=== PATIENT | male | born 1990 | race Caucasian/White ===

== ENCOUNTER 2021-07-13 11:29 | Emergency (ER) | payer SELFPAY ==
--- NOTE | ~2021-07-13 | XR_ITS ---
EXAMINATION: XR WRIST, LEFT CLINICAL INFORMATION: Work injury COMPARISON: None TECHNIQUE: PA, lateral, and oblique views of the left wrist. FINDINGS: Visualized portions of the distal radius and ulna demonstrate no fracture. Carpal rows are well-maintained. No carpal bone fracture. Visualized metacarpals and phalanges demonstrate no fracture. No focal soft tissue swelling of the wrist. No radiopaque foreign body. XR/XR wrist LT 2V IMPRESSION: Unremarkable radiographs of the left wrist.
[2021-07-13 11:35] VITALS: BP 182/94; PULSE 82; RESP 18; TEMP 36.8; O2SAT 98; BMI 30.7
--- NOTE | 2021-07-13 12:38 | ED_ITS ---
HPI - Extremity Injury (Upper) General Chief Complaint: Extremity Injury, Upper Stated Complaint: l wrist pain work inj Time Seen by Provider: 07/13/21 11:43 Source: patient Mode of arrival: ambulatory Limitations: no limitations History of Present Illness MD complaint: injury to: left, forearm and wrist Onset (ago): day(s) (For the past few days worse today) Other Extremity Injury: left: wrist and arm Other injuries: none Place: work Severity: moderate Relieving factors: none Exacerbating factors: movement of extremity and other (Or trying to lift) Context: other (Lift injury) Associated symptoms: denies other symptoms Related Data Previous Rx's Medication Instructions Recorded naproxen 500 mg tablet 500 mg PO BID PRN #10 tab 07/13/21 oxycodone-acetaminophen 5 mg-325 1 tab PO Q6H PRN #10 tab 07/13/21 mg tablet (Percocet) prednisone 20 mg tablet 40 mg PO DAILY 5 Days #10 tab 07/13/21 Allergies Allergy/AdvReac Type Severity Reaction Status Date / Time No Known Allergies Allergy Unverified 05/16/20 17:36 [No Known Allergies*] Review of Systems Review of Systems: Constitutional : No Weight loss, No Fever, No Chills, No Night Sweats, No Fatigue, No Malaise ENT/Mouth : No Hearing loss, No Ear Pain, No Nasal Congestion, No Sinus Pain, No Hoarseness, No sore throat, No Rhinorrhea, No Swallowing Difficulty Eyes: No Eye Pain, No Swelling, No Redness, No Foreign Body, No Discharge, No Vision Changes Cardiovascular : No Chest Pain, No SOB, No Dyspnea on Exertion, No Orthopnea, No Edema, No Palpitations Respiratory : No Cough, No Sputum, No Wheezing, No Smoke Exposure, No Dyspnea Gastrointestinal : No Nausea, No Vomiting, No Diarrhea, No Constipation, No abdominal Pain, No Hematochezia, No Melena Genitourinary : no irregular bleeding, No Dysuria, No Urinary Frequency, No Hematuria, No Urinary Incontinence, No Urgency, No Flank Pain, No Urinary Flow Changes, No Hesitancy Musculoskeletal : + right wrist/forearm joint pain, No Myalgias, No Joint Swelling Skin : No Skin Lesions, No rash Neuro : No Weakness, No Numbness, No Paresthesias, No Loss of Consciousness, No Dizziness, No Headache Psych : No Anxiety/Panic, No Depression, No SI/HI/AH/VH, No Social Issues, Heme/Lymph: No Bruising, No Bleeding,No Lymphadenopathy Endocrine : No Polyuria, No Polydipsia, No Temperature Intolerance Yes all other systems are reviewed and are negative [facility] Past Medical History Attestation statement: The following information was validated with the patient. Social History Social History Advance Directives: No Advance Directives Information Provided: No Physical Exam Vital Signs: Vital Signs: Last Vital Signs Temp 98.2 F 07/13/21 11:35 Pulse 82 07/13/21 11:35 Resp 18 07/13/21 11:35 BP 182/94 H 07/13/21 11:35 Pulse Ox 98 07/13/21 11:35 Body Mass Index 30.7 vital signs have been reviewed as normal and appeared to be correct. Blood pressure 182/94 Heart rate normal. Respiration rate normal. Temperature normal. Oxygen saturation normal. Appearance: Alert. Oriented X3. No acute distress. Head: Normal external exam. Normocephalic. Atraumatic. Eyes: PERRLA. EOMI. Conjunctiva and sclera normal. Eyelids normal. ENT: Pharynx normal. Uvula midline. Moist mucous membranes. Neck: Normal inspection. Neck supple. FROM. CVS: Normal heart rate and rhythm. Respiratory: No respiratory distress. Painless inspiration. Skin: Skin warm and dry. Normal skin color. Normal skin turgor. No rashes/lesions/lacerations noted. Extremities: TTP to the left volar aspect of the wrist right in the middle patient has tenderness all patient going up the right forearm and pain with extension of the wrist although no pain with flexion of the wrist. No obvious tendon or ligament injury. Negative for carpal tunnel. Although he has full range of motion of the right hand/wrist/elbow joint. no upper extremity edema is noted. Otherwise all other Extremities exhibit normal range of motion and nontender. Neuro: Oriented X 3. No motor deficit. No sensory deficit. Reflexes normal. Normal steady gait. No focal neuro deficits noted. Vascular: + radial pulses/+ 2 distal pedal pulses/+2 dorsalis pedis b/l. Normal cap refill. No cyanosis noted to upper extremity nails and lower extremity toes nails. Course Course Course Narrative: -year-old male presenting to the ED with complaints of left wrist pain especially when he tries to lift anything he feels like it goes week and he is going to drop everything this has been going on for the past few days he is unsure if this is a work related injury or not. X-ray negative for any acute processes. Therefore will place in a wrist splint and treat symptomatic and referred to orthopedic instructions to return if any new or worsening symptoms. Patient understands agrees with this plan. MDM - Extremity Injury (Upper) Medical Records Attestation: I reviewed the patient's medical records. Imaging Data Left wrist x-ray: Attestation: I personally reviewed and interpreted this imaging study as follows: Radiologist's impression: FINDINGS: Visualized portions of the distal radius and ulna demonstrate no fracture. Carpal rows are well-maintained. No carpal bone fracture. Visualized metacarpals and phalanges demonstrate no fracture. No focal soft tissue swelling of the wrist. No radiopaque foreign body.? XR/XR wrist LT 2V IMPRESSION: Unremarkable radiographs of the left wrist. Procedures Orthopedic Splinting/Casting Injury #1: Side: left Upper Extremity Injury Location: wrist Upper Extremity Immobilizer: wrist splint Discharge Plan Discharge Clinical Impression: Sprain and strain of wrist Patient Disposition: Home, Self-Care Instructions: Wrist Injury (ED), Wrist Sprain (ED) Prescriptions: New prednisone 20 mg tablet 40 mg PO DAILY 5 Days Qty: 10 RF: 0 oxycodone-acetaminophen [Percocet] 5-325 mg tablet 1 tab PO Q6H PRN (Reason: pain) Qty: 10 RF: 0 naproxen 500 mg tablet 500 mg PO BID PRN (Reason: pain) Qty: 10 RF: 0 Referrals: Harshad Young MD [Physician] - 2 weeks (If symptoms persist make an appointment) Arjun Torres MD [Primary Care Provider] - 2 days [facility] [Provider Group] - 2 days Stand Alone Forms: Work/School Release Print Language: Barbadian
== END 2021-07-13 12:59 | disposition home or self-care (01) ==
PROVIDERS: Emergency Provider Emergency Medicine; PCP Family Medicine
DX: S63.502A Unspecified sprain of left wrist, initial encounter (principal); S66.912A Strain of unspecified muscle, fascia and tendon at wrist and hand level, left hand, initial encounter; X50.9XXA Other and unspecified overexertion or strenuous movements or postures, initial encounter; Y93.9 Activity, unspecified; Y92.9 Unspecified place or not applicable; Y99.0 Civilian activity done for income or pay
CPT/HCPCS: 73100; 99283; 99284

== ENCOUNTER → 2022-10-29 11:18 | Outpatient (BNVA) | payer OTHER, SELFPAY | PROVIDERS: PCP Family Medicine; Visit Provider Physician Assistant | DX: S39.012A Strain of muscle, fascia and tendon of lower back, initial encounter (principal); X50.1XXA Overexertion from prolonged static or awkward postures, initial encounter | CPT/HCPCS: 99202 ==

== ENCOUNTER → 2022-11-03 11:42 | Outpatient (BNVA) | payer OTHER, SELFPAY | PROVIDERS: PCP Family Medicine; Visit Provider Internal Medicine | DX: S39.012A Strain of muscle, fascia and tendon of lower back, initial encounter (principal); X58.XXXA Exposure to other specified factors, initial encounter | CPT/HCPCS: 99213 ==

== ENCOUNTER → 2022-11-12 10:17 | Outpatient (BNVA) | payer OTHER, SELFPAY | PROVIDERS: PCP Family Medicine; Visit Provider Internal Medicine | DX: S39.012A Strain of muscle, fascia and tendon of lower back, initial encounter (principal); X58.XXXA Exposure to other specified factors, initial encounter | CPT/HCPCS: 99213 ==

== ENCOUNTER → 2022-11-19 13:25 | Outpatient (BNVA) | payer OTHER, SELFPAY | PROVIDERS: PCP Family Medicine; Visit Provider Internal Medicine | DX: M54.50 Low back pain, unspecified (principal) | CPT/HCPCS: 99213 ==

== ENCOUNTER 2022-11-19 15:00 | Outpatient (RCR) | payer OTHER, BC, SELFPAY ==
--- NOTE | 2022-11-04 11:50 | MHC.PT.EP ---
[facility] [place] [facility] [place] [facility] [place] [facility] [address] Monie Melissa [address] [phone] F: [phone] F: [phone] F: [phone] F: [phone] Physical Therapy Plan of Care Date of Evaluation: Date of Surgery: Diagnosis: lumbar strain Assessment: 32 y/o male referred to PT from [facility] with lumbar strain. 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 S/s consistent with lumbar strain secondary to decreased lumbar AROM (especially flexion), decreased hip strength, decreased quad/piriformis length, increased TTP, sacral instability with squatting, and impaired posture. Recommend PT 2x/week for 4 weeks to address impairments, implement HEP, and optimize functional mobility. Frequency and Duration: The patient will be seen 2x/week for 4 weeks Short Term Goals: 3 weeks Compliant with HEP Pt will demonstrate improved postural awareness by sitting with biomechanically correct posture without cues throughout session to improve overall postural function. Pt will demonstrate decreased pain by 50% with transitional movements [employer] Goals: 4 weeks I with HEP and self management of sx Pt will demonstrate ability to perform full lumbar flexion bending with pain < 2/10 Pt will demonstrate ability to squat with proper mechanics and improved pelvic stability with pain < 2.10 Pt will demonstrate ability to perform all lifting ADL's without difficulty Pt will demonstrate good body mechanics with lifting 20# floor to waist for decreased risk of re-injury Treatment Plan: Modalities to reduce pain, spasms and effusion. Manual therapy to restore motion and function. Therapeutic exercise to improve strength and flexibility. Neuromuscular re-education for posture and balance. Therapeutic activities to return to functional activities of daily living. Electronically signed by: Yaima Brady PT Please sign and return to therapist. Thank you for your referral.
--- NOTE | 2022-12-03 15:25 | MHC.PT.DC ---
[facility] [place] Office [place] [facility] [place] Office [address] Monie Melissa [address] [phone] F: [phone] F: [phone] F: [phone] F: [phone] Physical Therapy Discharge Report Diagnosis: lumbar strain Date of Surgery: Date of Evaluation: 11/04/22 Date of Discharge: 12/03/22 Treatments to Date: 5 Cancellations to Date: 0 No Shows to Date: 4 Discharge Status: Improved Function Independent with HEP Discharge Summary: He was making good progress with less pain reported and proper lifting techniques. He was able to lift 30 pound box and carry 80ft x 10. He did not attend final visits and is d/c at this time. Electronically signed by: Yaima Brady PT Please sign and return to therapist. Thank you for your referral.
== END 2022-12-03 15:25 | disposition home or self-care (01) ==
LOC: HO.PT 15:00
PROVIDERS: PCP Family Medicine; Visit Provider Internal Medicine
DX: S39.012D Strain of muscle, fascia and tendon of lower back, subsequent encounter (principal)
CPT/HCPCS: 97110; 97161; 97530